=== PATIENT | male | born 1985 | race Hispanic/Latino ===

== ENCOUNTER 2018-07-31 14:43 | Emergency (ER) | payer OTHER, MEDICAID ==
[2018-07-31 14:48] VITALS: BP 146/92; PULSE 88; RESP 22; TEMP 98.4; O2SAT 100
[2018-07-31] MEDS ORDERED: Morphine 4 MG/ML VIAL IV STA (15:15)
[2018-07-31] MEDS ORDERED: Morphine 4 MG/ML VIAL ONE (15:18)
--- NOTE | 2018-07-31 15:41 | RAD ---
Date of service: 07/31/2018 PROCEDURE: Radiographs of the Right Shoulder HISTORY: dislocation COMPARISON: No prior. FINDINGS: BONES: Bone alignment and mineralization are normal. There is no acute displaced fracture or bone destruction. JOINTS: There is anterior inferior dislocation of the glenohumeral joint. The acromioclavicular joint is normal. SOFT TISSUES: Normal. OTHER FINDINGS: None. IMPRESSION: Anterior inferior glenohumeral dislocation. No acute displaced fracture.
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
--- NOTE | 2018-07-31 16:31 | RAD ---
Date of service: 07/31/2018 PROCEDURE: Radiographs of the Right Shoulder HISTORY: Post-reduction COMPARISON: No prior. FINDINGS: BONES: Bone alignment and mineralization are normal. There is no acute displaced fracture or bone destruction. JOINTS: There is interval successful reduction of anterior inferior glenohumeral dislocation. There is near normal bone alignment. The glenohumeral and acromioclavicular joints are normal. SOFT TISSUES: Normal. OTHER FINDINGS: None. IMPRESSION: Successful reduction of anterior inferior glenohumeral dislocation.
== END 2018-07-31 18:05 | disposition home or self-care (01) ==
LOC: H.ER 14:43
DX: S43.004A Unspecified dislocation of right shoulder joint, initial encounter (principal); W19.XXXA Unspecified fall, initial encounter; Y93.55 Activity, bike riding
CPT/HCPCS: 23655; 73020; 73030; 99283; J2270